=== PATIENT | male | born 1980 | race Caucasian/White ===

== ENCOUNTER → 2016-08-22 | Outpatient (CLI) | payer BC | LOC: MW.CHFP 08:29 | PROVIDERS: ATTEND Student in an Organized Health Care Education/Training Program | DX: R19.5 Other fecal abnormalities (principal) | CPT/HCPCS: 36415; 86003 ==

== ENCOUNTER → 2016-08-23 | Outpatient (CLI) | payer BC | LOC: MW.CHFP 10:47 | PROVIDERS: ATTEND Student in an Organized Health Care Education/Training Program | DX: R19.5 Other fecal abnormalities (principal) | CPT/HCPCS: 83630; 87046; 87324; 87338; 87899 ==

== ENCOUNTER → 2016-10-10 | Outpatient (CLI) | payer BC ==
--- NOTE | 2016-10-10 16:11 | CR ---
EXAMINATION: Two-view chest (PA and Lateral views). HISTORY: Cough. FINDINGS: The trachea is midline. The cardiomediastinal silhouette is within normal limits. No pulmonary infil trates, effusions or pneumothorax. Osseous structures appear unremarkable. IMPRESSION: No acute cardiopulmonary process.
== END ==
LOC: MW.CHFP 15:08
PROVIDERS: ATTEND Physician Assistant
DX: R05 Cough (principal)
CPT/HCPCS: 36415; 71020; 71020-26; 85025

== ENCOUNTER → 2016-10-24 | Outpatient (CLI) | payer BC | END | disposition home or self-care (01) | LOC: MW.CHENT 16:02 | PROVIDERS: ATTEND Otolaryngology | DX: J31.0 Chronic rhinitis (principal); J32.9 Chronic sinusitis, unspecified | CPT/HCPCS: 36415; 86003 ==